=== PATIENT | male | born 1955 | race Caucasian/White ===

== ENCOUNTER 2017-02-24 23:16 | Emergency (ER) | payer OTHER ==
[2017-02-25] MEDS ORDERED: PROMETHAZINE HCL 25 MG/ML VIAL IVP ONE (00:27)
[2017-02-25 00:48] LABS: BASO % 0.1 % (0-6); EOS % 2.4 % (0-6); GRAN % 62.5 % (47-80); HEMATOCRIT 42.7 % (42.0-52.0); HEMOGLOBIN 13.7 gm/dl (14.0-18.0); LYMPH % 27.1 % (16-45); MEAN CELL VOLUME 88.2 fl (81-97); MEAN CORPUSCULAR HEMOGLOBIN 28.3 pg (27-33); MEAN CORPUSCULAR HGB CONC 32.1 g/dl (32-36); MEAN PLATELET VOLUME 10.6 fl (7.4-10.4); MONO % 7.9 % (0-9); PLATELET COUNT 231 K/uL (130-400); RED BLOOD COUNT 4.84 M/uL (4.40-5.70); WHITE BLOOD COUNT W/O DIFF 8.3 K/uL (4.2-12.2)
[2017-02-25 00:58] LABS: BLOOD UREA NITROGEN 16 mg/dL (9-20); CREATININE 0.8 mg/dL (0.66-1.25); EST GLOMERULAR FILTRATION RATE > 60 ml/min; GLUCOSE,RANDOM 133 mg/dL (70-110)
--- NOTE | 2017-02-25 01:25 | Emergency Department Record ---
History of Present Illness - General Chief Complaint: Dizziness Stated Complaint: HIGH BLOOD PRESSURE/DIZZY/SCHULZ Time Seen by Provider: 02/25/17 00:03 Source: Patient Mode of Arrival: Ambulatory Limitations: No limitations - History of Present Illness Initial Comments: pt was watching tv when he became dizzy and had a headache. he thought that his bp might be high and came for evaluation Complaint: Dizziness, Lightheadedness Onset/Timin -: Hour(s) Timing: Gradual onset, Constant Description: Lightheadedness, Sense of movement History of Same: No History of Trauma: No Severity: Moderate Improves With: Nothing Worsens With: Nothing Associated Symptoms: Denies other symptoms - [place] Coma Scale Eye Response: (4) Open spontaneously Motor Response: (6) Obeys commands Verbal Response: (5) Oriented Aileen Total: 15 - Related Data Home Medications Medication Instructions Recorded Confirmed Last Taken Atorvastatin Calcium [Lipitor] 80 mg PO DAILY 02/24/17 02/24/17 02/24/17 Carvedilol [Carvedilol] 25 mg PO DAILY 02/24/17 02/24/17 02/24/17 Clopidogrel Bisulfate [Clopidogrel] 75 mg PO DAILY 02/24/17 02/24/17 02/24/17 Hydrochlorothiazide 25 mg PO BID 02/24/17 02/24/17 02/24/17 Hydrocortisone Acetate [Anusol-Hc] 25 mg RC BID 02/24/17 02/24/17 02/24/17 Metronidazole [Metrocream] 45 gm TP BID PRN 02/24/17 02/24/17 02/24/17 Minocycline HCl 100 mg PO BID 02/24/17 02/24/17 02/24/17 Potassium Chloride [Klor-Con] 20 meq PO DAILY 02/24/17 02/24/17 02/24/17 Tramadol HCl [Tramadol HCl] 50 mg PO QID PRN 02/24/17 02/24/17 02/24/17 Allergies Allergy/AdvReac Type Severity Reaction Status Date / Time aspirin Allergy Unknown SWELLING Verified 02/24/17 23:28 (GENERAL) NSAIDS (Non-Steroidal Allergy Unknown SWELLING Verified 02/24/17 23:28 Anti-Inflamma (GENERAL) Pyrazoles Allergy Unknown SWELLING Verified 02/24/17 23:28 (GENERAL) Salicylates * Allergy Unknown SWELLING Verified 02/24/17 23:28 (GENERAL) Travel Screening - Travel/Exposure Within Last 30 Days Have you traveled within the last 30 days?: No - Travel/Exposure Within Last Year Have you traveled outside the [place] in the last year?: No - Additonal Travel Details Have you been exposed to anyone with a communicable illness?: No - Travel Symptoms Symptom Screening: None Review of Systems Reviewed: No additional complaints except as noted below Constitutional: Reports: As per HPI. Denies: Chills, Fever, Malaise, Night sweats, Weakness, Weight change Eyes: Reports: As per HPI. Denies: Eye discharge, Eye pain, Photophobia, Vision change ENT: Reports: As per HPI. Denies: Congestion, Dental pain, Ear pain, Epistaxis , Hearing loss, Throat pain Respiratory: Reports: As per HPI. Denies: Cough, Dyspnea, Hemoptysis, Stridor, Wheezes Cardiovascular: Reports: As per HPI. Denies: Arrhythmia, Chest pain, Dyspnea on exertion, Edema, Murmurs, Orthopnea, Palpitations, Paroxysmal nocturnal dyspnea, Rheumatic Fever, Syncope Endocrine: Reports: As per HPI. Denies: Fatigue, Heat or cold intolerance, Polydipsia, Polyuria Gastrointestinal: Reports: As per HPI. Denies: Abdominal pain, Constipation, Diarrhea, Hematemesis, Hematochezia, Melena, Nausea, Vomiting Genitourinary: Reports: As per HPI. Denies: Dysuria, Frequency, Hematuria, Incontinence, Retention, Testicular pain, Testicular mass, Urgency Musculoskeletal: Reports: As per HPI. Denies: Arthralgia, Back pain, Gout, Joint swelling, Myalgia, Neck pain Skin: Reports: As per HPI. Denies: Bruising, Change in color, Change in hair/ nails, Lesions, Pruritus, Rash Neurological: Reports: As per HPI. Denies: Abnormal gait, Confusion, Headache, Numbness, Paresthesias, Seizure, Tingling, Tremors, Vertigo, Weakness Psychiatric: Reports: As per HPI. Denies: Anxiety, Auditory hallucinations, Depression, Homicidal thoughts, Suicidal thoughts, Visual hallucinations Hematological/Lymphatic: Reports: As per HPI. Denies: Anemia, Blood Clots, Easy bleeding, Easy bruising, Swollen glands Past Medical History - SOCIAL HISTORY Smoking Status: Former smoker Alcohol Use: Occassional Drug Use: None - RESPIRATORY Hx Respiratory Disorders: No - CARDIOVASCULAR Hx Cardio Disorders: Yes Hx Hypertension: Yes - NEURO Hx Neuro Disorders: No - GI Hx GI Disorders: No - Hx Genitourinary Disorders: No - ENDOCRINE Hx Endocrine Disorders: No - MUSCULOSKELETAL Hx Musculoskeletal Disorders: Yes Hx Arthritis: Yes - PSYCH Hx Psych Problems: No - HEMATOLOGY/ONCOLOGY Hx Hematology/Oncology Disorders: Yes Comment:: on Plavix- stated "for bp" Family Medical History Any Significant Family History?: No Physical Exam - General General Appearance: Alert, Oriented x3, Cooperative, Mild distress - Head Head exam: Normal inspection - Eye Eye exam: Normal appearance, PERRL, EOMI Pupils: Normal accommodation - ENT ENT exam: Normal exam, Mucous membranes moist, Normal external ear exam, Normal orophraynx, TM's normal bilaterally Ear exam: Normal external inspection. negative: External canal tenderness Nasal Exam: Normal inspection. negative: Discharge, Sinus tenderness Mouth exam: Normal external inspection, Tongue normal Teeth exam: Normal inspection. negative: Dental caries Throat exam: Normal inspection. negative: Tonsillar erythema, Tonsillar exudate - Neck Neck exam: Normal inspection, Full ROM. negative: Tenderness - Respiratory Respiratory exam: Normal lung sounds bilaterally. negative: Respiratory distress - Cardiovascular Cardiovascular Exam: Regular rate, Normal rhythm, Normal heart sounds - GI/Abdominal GI/Abdominal exam: Soft, Normal bowel sounds. negative: Tenderness - Rectal Rectal exam: Deferred - exam: Deferred - Extremities Extremities exam: Normal inspection, Full ROM, Normal capillary refill. negative: Tenderness - Back Back exam: Reports: Normal inspection, Full ROM. Denies: Muscle spasm, Rash noted, Tenderness - Neurological Neurological exam: Alert, Normal gait, Oriented X3, Reflexes normal - Psychiatric Psychiatric exam: Normal affect, Normal mood - Skin Skin exam: Dry, Intact, Normal color, Warm Course Vital Signs 02/24/17 23:24 Temperature 98.7 F Pulse Rate [ 73 Pulse Ox Probe] Respiratory 16 Rate Blood Pressure 122/87 [Left Arm] Pulse Ox 95 - Reevaluation(s) Reevaluation #1: 02/25/17 01:42 pt feels better Medical Decision Making - Management Options MDM Management: Additional Work-up Planned (e.g. ADM/Transfer/OP Study) - Data Complexity MDM Data: Labs Ordered and/or Reviewed, X-Ray Ordered and/or Reviewed - Lab Data Result diagrams: 02/25/17 00:40 02/25/17 00:40 Lab Results 02/25/17 02/25/17 Range/Units 00:40 00:40 WBC 8.3 (4.2-12.2) K/uL RBC 4.84 (4.40-5.70) M/uL Hgb 13.7 L (14.0-18.0) gm/dl Hct 42.7 (42.0-52.0) % MCV 88.2 (81-97) fl MCH 28.3 (27-33) pg MCHC 32.1 (32-36) g/dl RDW 15.0 H (11.5-14.5) % Plt Count 231 (130-400) K/uL MPV 10.6 H (7.4-10.4) fl Gran % 62.5 (47-80) % Lymphocytes % 27.1 (16-45) % Monocytes % 7.9 (0-9) % Eosinophils % 2.4 (0-6) % Basophils % 0.1 (0-6) % Sodium 143 (136-145) mmol/L Potassium 3.5 (3.5-5.1) mmol/L Chloride 103 (98-107) mmol/L Carbon Dioxide 32.0 H (22-30) mmol/L Anion Gap 8.0 (7-16) BUN 16 (9-20) mg/dL Creatinine 0.8 (0.66-1.25) mg/dL Estimated GFR > 60 ml/min Random Glucose 133 H (70-110) mg/dL Calcium 9.5 (8.5-10.1) mg/dL - Radiology Data Radiology results: Report reviewed, Image reviewed Disposition Disposition: Discharge Clinical Impression: Dizziness Disposition: Home, Self-Care Condition: (1) Good Instructions: Dizziness (ED) Additional Instructions: follow up with family doctor. return sooner if worse Forms: Patient Portal Access
--- NOTE | 2017-02-25 09:11 | CT SCAN REPORT ---
EXAM: CT SCAN HEAD WO CONTRAST HISTORY: DIZZINESS BEGINNING EIGHT HOURS AGO. TECHNIQUE: Routine noncontrast CT examination of the head is performed. COMPARISON: None. FINDINGS: The subarachnoid spaces are borderline to mildly prominent. The ventricles are not enlarged. No suspicious area of abnormally increased or decreased attenuation is noted throughout the brain substance. No abnormal extraaxial fluid collection is seen. No asymmetric density of the middle cerebral artery is demonstrated. There is mild atherosclerotic calcification of the distal carotid arteries. Postcataract surgery changes are noted bilaterally. The orbits are otherwise unremarkable. The visualized paranasal sinuses and mastoid air cells are clear. Prominent cerumen is suggested in each external auditory canal. IMPRESSION: NO CT EVIDENCE OF AN ACUTE INTRACRANIAL ABNORMALITY. JOB NUMBER: [id number] MTDD
== END 2017-02-25 01:54 | disposition home or self-care (01) ==
LOC: ER 23:16
DX: R42 Dizziness and giddiness (principal); R51 Headache; I10 Essential (primary) hypertension; Z87.891 Personal history of nicotine dependence
CPT/HCPCS: 70450; 80048; 85025; 93005; 93010; 96374; 99284; J2550

== ENCOUNTER 2018-09-03 06:57 | Day surgery (SDC) | payer OTHER ==
[2018-09-03] MEDS ORDERED: PROPOFOL 10 MG/ML VIAL IV ONE (06:58)
[2018-09-03] MEDS ORDERED: LIDOCAINE 2% MDV (20MG/ML) 20ML VIAL IV ONE (06:58)
--- NOTE | 2018-09-04 10:30 | Operative Note ---
DATE OF SURGERY: 09/03/2018 OPERATION: COLONOSCOPY. PREOPERATIVE DIAGNOSIS: History of serrated sessile adenoma. POSTOPERATIVE DIAGNOSES: 1. Left-sided diverticulosis. 2. Multiple colon polyps. SPECIMENS: Descending colon polyp, transverse colon polyps, sigmoid polyp. ESTIMATED BLOOD LOSS: Minimum. COMPLICATIONS: None apparent. PREPARATION QUALITY: Good. PROCEDURE: After informed consent was obtained from the patient, he was placed in the left lateral decubitus position in the endoscopy suite, sedated and monitored by the department of anesthesia. Digital rectal exam was unremarkable. A well-lubricated [id number] colonoscope was inserted into the rectum and advanced to the cecum. Preparation quality was good. The cecum, cecal bulb, and ascending colon were unremarkable. The transverse colon revealed 2 sessile polyps 3-5 mm in diameter each removed with a cold forceps. Minimal bleeding was noted. There were 2 descending colon polyps ranging in size from 3-5 mm each removed with a cold forceps with minimal bleeding. There was 1 diminutive sigmoid colon polyp removed with a cold forceps with minimal bleeding noted. There were multiple diverticula in the sigmoid and descending colon. The rectum was unremarkable in forward and in J-turn views. The endoscope was straightened , the rectal ampulla deflated, and the endoscope was removed. RECOMMENDATIONS: I would suggest the patient follow a high-fiber diet. He should undergo repeat exam in 3-5 years pending tissue histology. As always, thank you for allowing me to participate in the healthcare of your patients. CC: Jj GILES
== END 2018-09-03 08:40 | disposition home or self-care (01) ==
LOC: HOP 06:57
PROVIDERS: ATTEND Internal Medicine Gastroenterology
DX: Z12.11 Encounter for screening for malignant neoplasm of colon (principal); Z86.010 Personal history of colon polyps; D12.4 Benign neoplasm of descending colon; D12.3 Benign neoplasm of transverse colon; K63.5 Polyp of colon; K57.30 Diverticulosis of large intestine without perforation or abscess without bleeding; I10 Essential (primary) hypertension; E78.00 Pure hypercholesterolemia, unspecified